=== PATIENT | male | born 2000 | race American Indian/Alaskan Native ===

== ENCOUNTER 2023-11-28 12:18 | Emergency (ER) | payer OTHER, SELFPAY ==
[2023-11-28 12:29] VITALS: BP 116/83
--- NOTE | 2023-11-28 14:20 | ED.GENMED ---
History of Present Illness
General
Chief Complaint: Musculo-Skeletal Complaint
Source: patient
Exam Limitations: none
Time Seen by Provider: 11/28/23 13:28
Nursing documentation reviewed up to this point in time: agreed with
Travel History
Have you had any contact with someone who has COVID-19?: No
Do you have any symptoms of coronavirus? Fever > 100 degrees, chills, cough, shortness of breath, sore throat, loss of taste or smell, muscle aches, or headache?: No
History of Present Illness
History of Present Illness:
pt is a 23 y/o M with no sig pmh
was performing a move in [employer] and felt that when he planted, his momentum made his knee shift and he thinks he popped his patella laterally and then immedatiely reduced it
since morning, he has felt with certain lateral movements he has had less significant lateral movement of his patella
he has not had any swelling, calf pain, weakness, numbness, inability to weight bear
he doesn't feel clicking or popping
no h/o patella dislcatoin
Past History
Past History
ED Past Medical History: None
ED Past Surgical History: None
Social History
Tobacco: Non-smoker
Alcohol: None
Drug: None
Personal: Single
Living: with family
Employment: Student
Review of Systems
Review of Systems
Allergies reviewed?: Yes
All Other Systems: Not applicable
Phy Exam
Physical Exam
Physical Exam:
GENERAL: Alert , in no apparent distress, comfortable at rest
HEAD: NCAT
CV: 2+ DP PULSES B/L
NEUROLOGICAL: Alert and oriented, no focal neuro deficits, , 5/5 strength, sensation intact, ambulation slight limp right leg
SKIN: Warm and dry, nbo bruising or redness
MUSCULOSKELETAL: right knee normal inspection
no effusion
nontender
able to fully extend and flex
mild laxity on varus and valgus stress but similar to opposite side
unable to dislocate patella on exam, tracking appropriately
neg ant/posterior drawer test
PSYCH: Normal and appropriate interaction.
Course
Orders/Labs/Results
Orders:
Orders
11/28/23 12:33
Knee, Right 4 or More Views [CR Knee- Right 4 Or More View*] Urgent
Comment:
Reason For Exam: injury
Vital Signs
Initial and Last Documented VS:
Initial Vital Signs
Temp Pulse BP Pulse Ox
99.1 F 93 116/83 95
11/28/23 12:29 11/28/23 12:29 11/28/23 12:29 11/28/23 12:29
Last Documented Vital Signs
Temp Pulse BP Pulse Ox
99.1 F 93 116/83 95
11/28/23 12:29 11/28/23 12:29 11/28/23 12:29 11/28/23 12:29
*Critical Care Note
Total Time (30-74mins, 75-104mins- exclusive of procedures): Not Applicable
ED Attending Note
-
Portions of this chart may have been created with voice recognition software.� Occasional wrong word or��sound alike� substitutions may have occurred due to the inherent limitations of voice recognition software.
Discharge Plan
Departure
Patient Disposition: Home (Routine Discharge)
Date of Disposition: 11/28/23
Time of Disposition: 14:28
Patient with high blood pressure during this ER visit?: No
Covid-19: Not Applicable
Discharge Problem:
Patellar subluxation
Instructions: Knee Immobilizer (DC), Knee Pain (DC)
Prescriptions:
No Action
ondansetron 4 MG tablet,disintegrating
4 mg PO TIDPRN PRN (Reason: NAUSEA) Qty: 15 0RF
Referrals:
Steve Evangelista MD [Active] - Follow up in 1 week
Katrin Mittal, DO [Family Provider] -
Activity Restrictions/Additional Instructions:
YOUR XRAY APPEARS NORMAL TODAY
YOU COULD HAVE SUBLUXED (OR PARTIALLY DISLOCATED) YOUR PATELLA
ICE OFF AND ON
MOTRIN 3 TIMES A DAY WITH FOOD
WEAR THE KNEE IMMOBILIZER WHILE AWAEK FOR 3-5 DAYS AT LEAST
FOLLOW UP WITH ORTHO NEEDED FOR CONTINUED SYMPTOMS
YOU MAY NEED PT.
RETURN FOR ANY COCNERNS.
Interventions
Interventions:
*Risk Screen - Suicide Last Done: 11/28/23 12:31
*General Assessment Last Done: 11/28/23 12:31
*Neglect/Abuse Screening Last Done: 11/28/23 12:31
ED- Fall Risk Assessment Last Done: 11/28/23 12:49
ED-Musculoskeletal Assessment Last Done: 11/28/23 12:49
Discharge Date and Time
Print Language: MAURITIAN
== END 2023-11-28 14:56 | disposition home or self-care (01) ==
LOC: EMR 12:18
PROVIDERS: EMERGENCY PHYSICIAN Emergency Medicine; FAMILY PHYSICIAN Family Medicine
DX: S83.001A Unspecified subluxation of right patella, initial encounter (principal); X58.XXXA Exposure to other specified factors, initial encounter; Y93.75 Activity, martial arts
CPT/HCPCS: 99283; 73564

== ENCOUNTER 2024-01-21 06:21 | Day surgery (SDC) | payer OTHER, SELFPAY ==
[2024-01-21] VITALS (9 sets, daily range): BP systolic 120–145; BP diastolic 78–92; BMI 29.4
[2024-01-21] MEDS: NORMOSOL-R 1000 IV (07:59)
[2024-01-21] MEDS: TYLENOL 1000 MG PO (08:00)
[2024-01-21] MEDS: CELEBREX 200 MG PO (08:00)
[2024-01-21] MEDS: DILAUDID 0.25 MG IV (12:56)
[2024-01-21] MEDS: ZOFRAN 4 MG IV (13:04)
[2024-01-21] MEDS: COMPAZINE 5 MG IV (14:34)
== END 2024-01-21 15:00 | disposition home or self-care (01) ==
LOC: SDS 06:21
PROVIDERS: ATTENDING PHYSICIAN Orthopaedic Surgery
DX: S83.511A Sprain of anterior cruciate ligament of right knee, initial encounter (principal); S83.221A Peripheral tear of medial meniscus, current injury, right knee, initial encounter; S83.411A Sprain of medial collateral ligament of right knee, initial encounter; X58.XXXA Exposure to other specified factors, initial encounter
CPT/HCPCS: 29888; 29881; C1713